=== PATIENT | female | born 1990 | race Caucasian/White ===

== ENCOUNTER → 2016-06-07 | Outpatient (CLI) | payer OTHER ==
[2016-06-07 13:46] LABS: BASO % 0.6 % (0.0-1.0); EOS # 0.1 K/mm3 (0.0-0.50); EOS % 1.4 % (0.0-3.0); LARGE UNSTAINED CELL # 0.1 K/mm3 (0.0-0.4); LARGE UNSTAINED CELL % 1.8 % (0.0-4.0); LYMPH # 2.1 K/mm3 (1.5-6.5); LYMPH % 27.4 % (24.0-44.0); MEAN CORPUSCULAR HEMOGLOBIN 26.4 pg (27.0-33.0); MEAN CORPUSCULAR HGB CONC 33.5 g/dl (32.0-36.5); MEAN CORPUSCULAR VOLUME 78.8 fl (80.0-96.0); MONO # 0.5 K/mm3 (0.0-0.8); MONO % 6.3 % (0.0-5.0); NEUTROPHILS # 4.5 K/mm3 (1.8-7.7); NEUTROPHILS % 62.5 % (36.0-66.0); PLATELET COUNT, AUTOMATED 219 k/mm3 (150-450); RED CELL DISTRIBUTION WIDTH 14.1 % (11.5-14.5); WHITE BLOOD COUNT 7.3 K/mm3 (4.0-10.0)
[2016-06-07 14:27] LABS: CONTROL LINE INT CTR LINE PRESENT; HIV SCRN NEGATIVE (NEGATIVE); HIV SCRN1 NEGATIVE (NEGATIVE)
[2016-06-07 14:31] LABS: HBsAg Prenatal NEGATIVE (NEGATIVE)
== END ==
LOC: M SMT 09:50
PROVIDERS: ATTEND Advanced Practice Midwife
DX: Z34.81 Encounter for supervision of other normal pregnancy, first trimester (principal)

== ENCOUNTER → 2016-06-10 | Outpatient (REF) | payer OTHER | LOC: M SFHCLERA 11:12 | PROVIDERS: ATTEND Nurse Practitioner Family | DX: R30.0 Dysuria (principal) ==

== ENCOUNTER → 2016-06-14 | Outpatient (REF) | payer OTHER | LOC: M LAB REF 16:52 | PROVIDERS: ATTEND Advanced Practice Midwife | DX: Z34.83 Encounter for supervision of other normal pregnancy, third trimester (principal) ==

== ENCOUNTER → 2016-07-05 | Outpatient (REF) | payer OTHER | LOC: M LAB REF 16:58 | PROVIDERS: ATTEND Specialist | DX: Z34.83 Encounter for supervision of other normal pregnancy, third trimester (principal) ==

== ENCOUNTER 2016-07-25 00:08 | Inpatient (IN) | payer OTHER ==
[2016-07-25] VITALS (44 sets, daily range): BP systolic 97–126; BP diastolic 56–86
[~2016-07-25] VITALS: Ht 170.2 cm; Wt 105.0 kg
[2016-07-25] MEDS ORDERED: LACTATED RINGER'S 1000 ML IV STA (00:46)
[2016-07-25] MEDS ORDERED: PENICILLIN G POTASSIUM IV 5 MU in D5W MINI-BAG PLUS 100 ML IV STA (00:46)
[2016-07-25] MEDS ORDERED: LR 1,000 ML IV SCH (00:46)
[2016-07-25] MEDS ORDERED: OXYTOCIN DRIP 30 UNITS in APPROPRIATE DILUENT 1 EA IV SCH ×2 (01:15→13:55)
[2016-07-25 02:03] LABS: MEAN CORPUSCULAR HGB CONC 33.2 g/dl (32.0-36.5); MEAN CORPUSCULAR VOLUME 75.4 fl (80.0-96.0); RED CELL DISTRIBUTION WIDTH 14.8 % (11.5-14.5); WHITE BLOOD COUNT 9.4 K/mm3 (4.0-10.0)
[2016-07-25] MEDS: PENICILLIN G POTASSIUM IV 2.5 MU in D5W 100 ML IV SCH ×2 (06:25→11:01)
[2016-07-25] MEDS ORDERED: FENTANYL 2MCG/ML ROPIVACAINE 0.2% NACL 250 ML CADD As Ordered ONE (08:38)
[2016-07-25] MEDS ORDERED: EPIDURAL/PCA KEYS XX PRN (10:45)
[2016-07-25] MEDS ORDERED: EPIDURAL COMMENT XX SCH (10:45)
[2016-07-25] MEDS ORDERED: NALOXONE INJ 0.4 MG/1 ML VIAL (J2310) IV PRN (10:45)
[2016-07-25] MEDS ORDERED: ePHEDrine SULFATE 25 MG/5 ML(5MG/ML) SYRINGE IV PRN (10:45)
[2016-07-25] MEDS ORDERED: FENTANYL/ROPIVACAINE/NACL CADD 250 ML EPIDURAL SCH (10:45)
[2016-07-25] MEDS ORDERED: REFRIGERATOR IV KEYS XX PRN (10:45)
[2016-07-25] MEDS ORDERED: LACTATED RINGER'S 1000 ML IV PRN (10:45)
[2016-07-25] MEDS ORDERED: diphenhydrAMINE INJ 50MG/ML VIAL (J1200) IV PRN (10:45)
[2016-07-25] MEDS ORDERED: ONDANSETRON 4MG/2ML VIAL (J2405) IV PRN (10:45)
[2016-07-25] MEDS ORDERED: MEASLES,MUMPS,RUBELLA VACCINE INJ (MMR-II) (90707) SC SCH (14:00)
[2016-07-25] MEDS ORDERED: ACETAMINOPHEN 500 MG TAB PO PRN (14:00)
[2016-07-25] MEDS ORDERED: RHOGAM 300 MCG (1500 IU) INJ (J2790) IM SCH (14:00)
[2016-07-25] MEDS ORDERED: DIBUCAINE 1% OINTMENT 30GM TOP PRN (14:00)
[2016-07-25] MEDS ORDERED: MOM 30ML SUSPENSION UDC PO PRN (14:00)
[2016-07-25] MEDS ORDERED: ANUSOL HC CREAM 30GM TOP PRN (14:00)
[2016-07-25] MEDS ORDERED: DOCUSATE SODIUM 100 MG CAP PO PRN (14:00)
[2016-07-25] MEDS ORDERED: METHYLERGONOVINE MALEATE 0.2 MG TAB PO PRN (14:00)
--- NOTE | 2016-07-25 16:35 | DN ---
DATE OF DELIVERY: 07/25/2016 TIME OF : 1322. GENDER: Female. SCORES: 8 and 9. WEIGHT: 3548 grams or 7 pounds 13 ounces. ANESTHESIA: Epidural. LACERATIONS: First-degree midline laceration. ESTIMATED BLOOD LOSS: 300 mL. COUNTS: There were five laparotomy sponges accounted for prior to and after delivery, one sharp which was removed from the delivery field. DELIVERY NOTE: On 07/25/2016 at 1322 hours, Ms. Mccord, a 26-year-old, had a vaginal delivery of a live-born female infant. scores were 8 and 9, weight 3548 or 7 pounds 13 ounces. Head was delivered occiput anterior (OA). There was a loose nuchal cord, which was manually reduced followed by delivery of shoulders and corpus. was handed to mother with a good cry. Cord was clamped times two. It was cut by the father of the baby under my direction. Cord blood was then obtained. Placenta was then drained and delivered grossly intact. A premixed bag of 500 mL of normal saline with 30 units of Pitocin was bolused along with uterine massage until the uterus was firm. On inspection, there was a first-degree midline laceration, which was repaired with #3-0 Vicryl Rapide. On re-inspection, cervix, vagina, and perineum were grossly intact. Mother and baby are recovering in stable condition. The couple has decided to name their daughter
[2016-07-25] MEDS: IBUPROFEN 800 MG TAB PO PRN (17:23)
[2016-07-25] MEDS: PRENATAL VITAMIN TAB PO SCH (19:00)
[2016-07-26] MEDS: IBUPROFEN 800 MG TAB PO PRN (04:57)
[2016-07-26 05:21] VITALS: BP 105/58
[2016-07-26] MEDS: PRENATAL VITAMIN TAB PO SCH (10:02)
[2016-07-26] MEDS ORDERED: PRENTAB9 PO (14:12)
[2016-07-26] MEDS ORDERED: IBUP-1114 PO (14:12)
[2016-07-26] MEDS ORDERED: ACET50TA PO (14:12)
== END 2016-07-26 15:40 | disposition home or self-care (01) | DRG 775 ==
LOC: M LDI 00:08 → M OBS 16:44
PROVIDERS: ADMIT Obstetrics & Gynecology; ATTEND Obstetrics & Gynecology
PROC: 10E0XZZ Delivery of Products of Conception, External Approach (ICD-10-PCS; principal; 2016-07-25)
PROC: 0HQ9XZZ Repair Perineum Skin, External Approach (ICD-10-PCS; 2016-07-25)
PROC: 3E033VJ Introduction of Other Hormone into Peripheral Vein, Percutaneous Approach (ICD-10-PCS; 2016-07-25)
DX: O69.82X0 Labor and delivery complicated by other cord entanglement, without compression, not applicable or unspecified (principal); Z37.0 Single live birth; Z3A.39 39 weeks gestation of pregnancy; O70.0 First degree perineal laceration during delivery; O99.820 Streptococcus B carrier state complicating pregnancy

== ENCOUNTER → 2016-10-27 | Day surgery (SDC) | payer OTHER ==
[~2016-10-27] VITALS: Ht 170.2 cm; Wt 106.1 kg
[~2016-10-27] MED LIST: ACET50TA PO; BUPIVACAINE HCL 0.25% 30 ML VIAL As Ordered ONE; GLYCOPYRROLATE INJ 0.2 MG/ML 2 ML VIAL As Ordered ONE; IBUP-1114 PO; KETOROLAC 30 MG/ML VIAL (J1885) IV SCH; KETOROLAC 60 MG/2 ML VIAL (J1885) As Ordered ONE; LIDOCAINE 2% INJ 100 MG/5 ML SDV (FOR ANES.) As Ordered ONE; LR 1,000 ML IV ONE; LR 1,000 ML IV SCH; METOCLOPRAMIDE INJ 10MG/2ML VIAL (J2765) IV PRN; MIDAZOLAM INJ 2 MG/2 ML VIAL (J2250) As Ordered ONE; NEOSTIGMINE 1MG/ML 5 ML SYRINGE (J2710) As Ordered ONE; ONDANSETRON 4MG/2ML VIAL (J2405) As Ordered ONE; ONDANSETRON 4MG/2ML VIAL (J2405) IV PRN; PERCOCET 5MG/325MG TAB PO PRN; PRENTAB9 PO; PROPOFOL 200 MG/20 ML VIAL As Ordered ONE; ROCURONIUM BROMIDE 50 MG/5 ML VIAL As Ordered ONE; ZYRT10CA PO; dexameTHASONE 4 MG/ML 1ML VIAL (J1100) As Ordered ONE; fentaNYL 100 MCG/2 ML INJECTION (J3010) As Ordered ONE; fentaNYL 100 MCG/2 ML INJECTION (J3010) IV PRN
[2016-10-27 09:08] LABS: MEAN CORPUSCULAR HEMOGLOBIN 26.8 pg (27.0-33.0); MEAN CORPUSCULAR HGB CONC 33.3 g/dl (32.0-36.5); MEAN CORPUSCULAR VOLUME 80.5 fl (80.0-96.0); RED CELL DISTRIBUTION WIDTH 16.6 % (11.5-14.5); WHITE BLOOD COUNT 7.8 K/mm3 (4.0-10.0)
[2016-10-27 09:15] LABS: CONTROL LINE HCG INT CTR LINE PRESENT
--- NOTE | 2016-10-27 11:04 | RO ---
DATE OF PROCEDURE: 10/27/2016 PREOPERATIVE DIAGNOSIS: Satisfied parity with undesired fertility. POSTOPERATIVE DIAGNOSIS: Satisfied parity with undesired fertility. PROCEDURE: Diagnostic operative laparoscopy with bilateral tubal ligation using Filshie clips. SURGEON: Vandana Pandya MD COIL CONNECTOR: None. ANESTHESIA: General endotracheal anesthesia. ESTIMATED BLOOD LOSS: 5 mL. INTRAVENOUS FLUIDS: 1 liter of lactated Ringer solution. SPECIMENS: None. OPERATIVE FINDINGS: Patient with normal appearing pelvic anatomy to include uterus and bilateral adenexa. Liver edge was visualized and appeared to be normal. INDICATION FOR OPERATION: This patient is a 26-year-old, 4, para 4, who has expressed satisfied parity with undesired fertility. She has been counseled on alternative contraception options and after consultation she desires permanent sterilization. DESCRIPTION OF OPERATION: After informed consent was obtained and written content was reviewed, the patient was brought to the operating room where general endotracheal anesthesia was obtained. She was then placed in lithotomy position and was prepped and draped in normal sterile fashion. A time out in the operating room was then performed identifying the patient, the procedure to be performed, as well as drug allergies. A bivalved speculum was then placed revealing the cervix. The anterior lip of the cervix was grasped with a single tooth tenaculum. A Hulka tenaculum was then advanced through the cervical os for means to manipulate the uterus. The single tooth tenaculum and speculum was then removed. A Mcclain catheter was then placed and set to gravity. Gloves were changed and attention was turned to the patient's abdomen where 0.25% Marcaine was infused in the umbilical region. This area was incised and a 5 mm trocar and sleeve was advanced through this incision. The laparoscope was placed confirming intraabdominal placement. The pneumoperitoneum was then obtained with CO2 gas. A second incision was made. This was approximately 2 cm above the pubic symphysis in the midline. This area was infused with 0.25% Marcaine. An incision was made in that area and an 8 mm trocar and sleeve was advanced through this incision under direct visualization. The abdomen was surveyed. The right fallopian tube was then followed out to the fimbriated end. Using a Filshie clip applicator, a Filshie clip was applied in the mid isthmus portion of the right fallopian tube with good blanching noted. The Filshie clip applicator was then reloaded with a Filshie clip and in a similar fashion the left fallopian tube was followed out to the fimbriated end and a Filshie clip was applied over the mid isthmic portion of the left fallopian tube with good blanching noted. Instruments were removed from the patient's abdomen. The pneumoperitoneum was then released. Trocars were removed. The incisions were closed with #4-0 Monocryl and dressed with Dermabond. The Hulka tenaculum was removed. Tenaculum sites were inspected and noted to be hemostatic. Mcclain catheter was removed. The patient was then taken out of lithotomy position and was awakened from general anesthesia and taken to recovery in stable condition. Counts were correct.
[2016-10-27 14:30] VITALS: BP 137/81
== END | disposition home or self-care (01) ==
LOC: M SDC 08:34
PROVIDERS: ATTEND Obstetrics & Gynecology
DX: Z30.2 Encounter for sterilization (principal)
CPT/HCPCS: 36415; 58671; 84703; 85027; 86850; 86900; 86901; A4649; J1100; J1885; J2250; J2405; J2710; J2765; J3010